=== PATIENT | female | born 1945 | race Caucasian/White ===

== ENCOUNTER 2025-01-14 21:35 | Inpatient (IN) | payer MEDICARE ==
[~2025-01-14] VITALS: Ht 165.1 cm; Wt 60.8 kg
[2025-01-14 21:39] VITALS: BP 150/76
[2025-01-14] MEDS ORDERED: NYST15CR TP (22:17)
[2025-01-14] MEDS ORDERED: QUET25TA PO (22:17)
[2025-01-14] MEDS ORDERED: ALBU8.5H8 INH (22:17)
[2025-01-14] MEDS ORDERED: RISP0.5T5 PO (22:17)
[2025-01-14] MEDS ORDERED: FAMO20TA8 PO (22:17)
[2025-01-14] MEDS ORDERED: CHOL4PAC3 PO (22:17)
[2025-01-14] MEDS ORDERED: DULO60CA64 PO (22:17)
[2025-01-14] MEDS ORDERED: TAMS-3 PO (22:17)
[2025-01-14] MEDS ORDERED: PANT40TA2 PO (22:17)
[2025-01-14] MEDS ORDERED: POTA-88 PO (22:17)
[2025-01-14] MEDS ORDERED: NEOM500T PO (22:17)
[2025-01-14] MEDS: BLOOD SUGAR DIAGNOSTIC 1 EACH STRIP VI ONE (22:45)
[2025-01-14] MEDS ORDERED: LORAZEPAM 1 MG TABLET PO PRN (22:45)
[2025-01-14] MEDS ORDERED: MAGNESIUM HYDROXIDE 30 ML LIQUID UDC PO PRN (22:45)
[2025-01-14] MEDS ORDERED: TEMAZEPAM 7.5 MG CAPSULE PO PRN ×2 (22:45)
[2025-01-14] MEDS ORDERED: MIDAZOLAM HCL 2 MG/2 ML VIAL ONE (23:03)
[2025-01-14] MEDS ORDERED: HALOPERIDOL LACTATE 5 MG/1 ML VIAL ONE (23:03)
[2025-01-14] MEDS ORDERED: diphenhydrAMINE 50 MG/1 ML VIAL ONE (23:03)
[2025-01-14] MEDS: MIDAZOLAM HCL 2 MG/2 ML VIAL IM PRN (23:05)
[2025-01-14] MEDS: diphenhydrAMINE 50 MG/1 ML VIAL IM ONE (23:09)
[2025-01-14] MEDS: HALOPERIDOL LACTATE 5 MG/1 ML VIAL IM ONE (23:09)
[2025-01-14 23:20] VITALS: BP 107/69; TEMP 98.1; O2SAT 93
[2025-01-14] MEDS ORDERED: ALBUTEROL SULFATE 8 GM HFA.AER.AD INH PRN (23:45)
[2025-01-14] MEDS: TAMSULOSIN HCL 0.4 MG CAP.SR.24H PO SCH (23:45)
[2025-01-14] MEDS ORDERED: QUETIAPINE FUMARATE 25 MG TABLET PO SCH (23:45)
[2025-01-15 07:46] VITALS: BP 103/53; TEMP 97.6; O2SAT 97
[2025-01-15 08:24] LABS: PLATELET COUNT (AUTO) 106 K/uL (179-408); RED BLOOD CELL COUNT(AUTO) 3.28 MIL/uL (3.63-4.92); RED CELL DISTRIBUTION WIDTH 17.7 % (12.3-17.7); WHITE BLOOD COUNT (AUTO) 2.8 K/uL (3.8-11.8)
[2025-01-15 08:55] LABS: ASPARTATE AMINOTRANSFERASE 36 U/L (15-37); CREATININE 0.5 mg/dL (0.6-1.3); GLUCOSE FASTING 88 mg/dL (70-115); SODIUM SERUM 147 mmol/L (136-145); TOTAL PROTEIN, SERUM 6.1 g/dL (6.4-8.2); UREA NITROGEN, BLOOD 8 mg/dL (7-18)
[2025-01-15] MEDS: PANTOPRAZOLE SODIUM 40 MG TABLET.DR PO SCH (08:59)
[2025-01-15] MEDS: DULOXETINE 60 MG CAPSULE.DR PO SCH (08:59)
[2025-01-15] MEDS: NYSTATIN CREAM 30 GM TUBE TP SCH (08:59)
[2025-01-15] MEDS ORDERED: FAMOTIDINE 20 MG TABLET PO SCH (09:00)
[2025-01-15] MEDS ORDERED: TEMAZEPAM 15 MG CAPSULE PO PRN (12:00)
[2025-01-15] MEDS: QUETIAPINE FUMARATE 25 MG TABLET PO SCH (12:03)
[2025-01-15] MEDS: POTASSIUM CHLORIDE 20 MEQ TAB.PRT.SR PO ONE (12:03)
[2025-01-15] MEDS: SERTRALINE HCL 50 MG TABLET PO SCH (12:04)
[2025-01-15 15:55] VITALS: BP 106/57; TEMP 97.6; O2SAT 97
[2025-01-15 20:00] VITALS: BP 128/56; TEMP 98.2; O2SAT 95
[2025-01-16 08:00] VITALS: BP 131/44; TEMP 97.8; O2SAT 98
[2025-01-16] MEDS ORDERED: DULOXETINE 60 MG CAPSULE.DR PO SCH (09:00)
[2025-01-16 16:00] VITALS: BP 100/59; TEMP 97.8; O2SAT 98
[2025-01-16 19:00] VITALS: BP 140/53; TEMP 97.8; O2SAT 97
[2025-01-16] MEDS: LORAZEPAM 1 MG TABLET PO PRN (20:40)
[2025-01-17 07:51] VITALS: BP 108/50; TEMP 97.7; O2SAT 98
[2025-01-17 16:16] VITALS: BP 110/56; TEMP 97.7; O2SAT 97
[2025-01-17 19:51] VITALS: BP 105/44; TEMP 98.2; O2SAT 95
[2025-01-18 07:45] VITALS: BP 149/73; TEMP 97.4; TEMP 98; O2SAT 100; O2SAT 94
[2025-01-18] MEDS: SERTRALINE HCL 50 MG TABLET PO SCH (09:44)
[2025-01-18 09:45] VITALS: BP 124/45; O2SAT 96
[2025-01-18 16:11] VITALS: TEMP 97; O2SAT 96
[2025-01-18 16:53] VITALS: BP 125/49; TEMP 97; O2SAT 96
[2025-01-18 20:00] VITALS: BP 136/54; TEMP 98.6; O2SAT 97
[2025-01-19 08:40] VITALS: BP 133/65; TEMP 97; O2SAT 96
[2025-01-19 16:17] VITALS: BP 133/65; TEMP 97; O2SAT 96
[2025-01-19 21:48] VITALS: BP 119/47; TEMP 98.3; O2SAT 99
[2025-01-20 08:09] VITALS: BP 146/91; TEMP 98; O2SAT 96
[2025-01-20] MEDS: TAMSULOSIN HCL 0.4 MG CAP.SR.24H PO SCH (08:17)
[2025-01-20 16:05] VITALS: BP 126/54; TEMP 97; O2SAT 96
[2025-01-20 20:16] VITALS: BP 90/43; TEMP 98.1; O2SAT 99
[2025-01-20] MEDS: MAG HYDROX/AL HYDROX/SIMETH 30 ML LIQUID UDC PO PRN (20:57)
[2025-01-21 08:58] VITALS: BP 142/68; TEMP 97; O2SAT 96
[2025-01-21 16:26] VITALS: BP 138/61; TEMP 97; O2SAT 96
[2025-01-21 19:44] VITALS: BP 155/53; TEMP 98.2; O2SAT 99
[2025-01-22 07:30] VITALS: BP 113/98; TEMP 98.4; O2SAT 96
[2025-01-22] MEDS: SERTRALINE HCL 50 MG TABLET PO SCH (08:29)
[2025-01-22 15:30] VITALS: BP 132/50; TEMP 98.4; O2SAT 95
[2025-01-22 20:00] VITALS: BP 106/53; TEMP 97.8; O2SAT 98
[2025-01-23 08:02] VITALS: BP 108/56; TEMP 98; O2SAT 98
[2025-01-23 15:05] VITALS: BP 115/51; TEMP 98; O2SAT 98
[2025-01-23] MEDS ORDERED: ASPARTAME PO SCH (17:00)
[2025-01-23] MEDS ORDERED: CHOLESTYRAMINE PO SCH (17:00)
[2025-01-23 20:00] VITALS: BP 140/54; TEMP 98; O2SAT 97
[2025-01-24 08:00] VITALS: BP 102/58; TEMP 98; O2SAT 90
[2025-01-24] MEDS: SERTRALINE HCL 100 MG TABLET PO SCH (09:03)
[2025-01-24] MEDS: NEOMYCIN SULFATE 500 MG TABLET PO SCH (11:52)
[2025-01-24 15:36] VITALS: BP 100/58; TEMP 98; O2SAT 96
[2025-01-24] MEDS: CHOLESTYRAMINE/ASPARTAME (LIGHT) 4 G/PKT PACKET PO SCH (18:02)
[2025-01-24 19:57] VITALS: BP 101/56; TEMP 97.9; O2SAT 96
[2025-01-25 07:57] VITALS: BP 90/51; TEMP 98.2; O2SAT 98
[2025-01-25 15:16] VITALS: BP 141/50; TEMP 98; O2SAT 98
[2025-01-25 20:11] VITALS: BP 101/51; TEMP 97.9; O2SAT 96
[2025-01-26 08:37] VITALS: BP 122/52; TEMP 98.2; O2SAT 98
[2025-01-26] MEDS: NEOMYCIN SULFATE 500 MG TABLET PO SCH (13:40)
[2025-01-26 16:21] VITALS: BP 111/61; TEMP 98.2; O2SAT 98
[2025-01-27 08:55] VITALS: BP 127/55; TEMP 98.2; O2SAT 98
[2025-01-27] MEDS: ACETAMINOPHEN 325 MG TABLET PO PRN (11:46)
[2025-01-27] MEDS ORDERED: SERT-440 PO (14:14)
[2025-01-27] MEDS ORDERED: QUET25TA36 PO (14:14)
[2025-01-27 16:12] VITALS: BP 132/61; TEMP 98.2; O2SAT 98
[2025-01-27 19:48] VITALS: BP 130/58; TEMP 98.1; O2SAT 98
[2025-01-28 08:25] VITALS: BP 127/68; TEMP 98.2; O2SAT 98
[2025-01-28 16:35] VITALS: BP 132/61; TEMP 98.2; O2SAT 98
== END 2025-01-28 17:30 | disposition home or self-care (01) | DRG 885 ==
LOC: ER 21:35 → GPS 22:38
PROVIDERS: ADMIT Psychiatry & Neurology Psychiatry; ATTEND Nurse Practitioner Acute Care
DX: F29 Unspecified psychosis not due to a substance or known physiological condition (principal); D61.818 Other pancytopenia; E44.0 Moderate protein-calorie malnutrition; K76.6 Portal hypertension; E87.0 Hyperosmolality and hypernatremia; E72.20 Disorder of urea cycle metabolism, unspecified; E78.5 Hyperlipidemia, unspecified; K74.69 Other cirrhosis of liver; E88.09 Other disorders of plasma-protein metabolism, not elsewhere classified; E11.9 Type 2 diabetes mellitus without complications; E87.6 Hypokalemia; Z87.440 Personal history of urinary (tract) infections; I10 Essential (primary) hypertension; Z91.81 History of falling; Z87.891 Personal history of nicotine dependence; Z88.0 Allergy status to penicillin; Z91.041 Radiographic dye allergy status; Z79.899 Other long term (current) drug therapy
CPT/HCPCS: 36415; 83735; 84100; 84443; 85025; J1200; J1630; J2250; J3535; J8499